=== PATIENT | male | born 1990 | race African-American/Black ===

== ENCOUNTER 2016-07-23 16:10 | Emergency (ER) | payer OTHER ==
[2016-07-23 16:19] VITALS: BP 127/74; PULSE 95; TEMP 98.6; BMI 19.1
--- NOTE | 2016-07-23 17:12 | PDOC ---
History of Present Illness - General Chief Complaint: Cold Symptoms Stated Complaint: CHEST TIGHTNES/COUGH/FEVER Time Seen by Provider: 07/23/16 16:56 History Source: Patient Exam Limitations: No Limitations - History of Present Illness Initial Comments: 07/23/16 17:14 Patient is here with complaints of body aches, fevers and chills, moist cough that is nonproductive, ear and throat pain. Daughter is currently being treated for influenza Timing/Duration: reports: just prior to arrival Severity: reports: moderate Associated Symptoms: reports: chest pain/soreness, cough, fever/chills, headache , nasal congestion, nasal drainage, sore throat Past History - Travel Traveled outside of the country in the last 30 days: No Close contact w/someone who was outside of country & ill: No - Past Medical History Allergies/Adverse Reactions: Allergies Allergy/AdvReac Type Severity Reaction Status Date / Time No Known Allergies Allergy Verified 07/23/16 16:15 Home Medications: Ambulatory Orders Oseltamivir Phosphate [Tamiflu -] 75 mg PO BID #10 capsule 07/23/16 Other medical history: none - Surgical History Abdominal Surgery: Yes (?pyloric stenosis) - Psycho/Social/Smoking Cessation Hx Anxiety: No Suicidal Ideation: No Smoking History: Current every day smoker Have you smoked in the past 12 months: Yes Number of Cigarettes Smoked Daily: 3 Information on smoking cessation initiated: Yes 'Breaking Loose' booklet given: 07/23/16 Hx Alcohol Use: No Drug/Substance Use Hx: No Review of Systems - Review of Systems Able to Perform ROS?: Yes Is the patient limited Vietnamese proficient: Yes Constitutional: Yes: Symptoms Reported, See HPI, Fever, Malaise HEENTM: Yes: Symptoms Reported, See HPI Respiratory: Yes: Symptoms reported, See HPI, Cough, Wheezing Musculoskeletal: Yes: Symptoms Reported Integumentary: Yes: Symptoms Reported All Other Systems: Reviewed and Negative *Physical Exam - Vital Signs Last Vital Signs Temp Pulse Resp BP Pulse Ox 98.6 F 95 H 18 127/74 100 07/23/16 16:16 07/23/16 16:16 07/23/16 16:16 07/23/16 16:16 07/23/16 16:16 - Physical Exam General Appearance: Yes: Nourished, Appropriately Dressed, Apparent Distress, Moderate Distress HEENT: positive: MATHEUS, Normal ENT Inspection, TMs Normal, Pharynx Normal, Pharyngeal Erythema, Rhinorrhea (clear ). negative: Tonsillar Exudate, Tonsillar Erythema Neck: positive: Supple, Lymphadenopathy (R), Lymphadenopathy (L). 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 Daughter is ill with same and tested positive for influenza A. Will treat with Tamiflu *DC/Admit/Observation/Transfer Diagnosis at time of Disposition: Influenza - Discharge Dispostion Disposition: HOME Condition at time of disposition: Stable Admit: No - Patient Instructions Printed Discharge Instructions: DI for Influenza -- Adult Additional Instructions: Rest, drink lots of fluids: Teas, water, soups, Pedialyte Saltwater gargles Steamy showers/seem to face break up mucus Old-fashioned treatments help! Avoid contact with others until fevers and cough resolved as this is very contagious Lots of handwashing and good hygiene Continue [id number] medications for symptomatic relief Tylenol or Motrin for fever and pain Take all of Tamiflu as directed: 1 tab every 12 hours for 5 days Followup with private physician in one to 2 days as needed or if worsening Return to emergency department for worsened symptoms, fevers, dehydration Influenza takes between 5 and 7 days for resolution To not participate in any activity, work, or school until fevers and cough are gone for at least one day - Post Discharge Activity Work/School Note: Back to Work
== END 2016-07-23 17:16 | disposition home or self-care (01) ==
LOC: JERFT 16:10
DX: J11.1 Influenza due to unidentified influenza virus with other respiratory manifestations (principal); F17.210 Nicotine dependence, cigarettes, uncomplicated
CPT/HCPCS: 99281-25

== ENCOUNTER 2020-12-24 11:58 | Emergency (ER) | payer OTHER ==
[2020-12-24 12:08] VITALS: BP 101/67; PULSE 91; TEMP 98.1; BMI 18.4
== END 2020-12-24 12:30 | disposition home or self-care (01) ==
LOC: JERFT 11:58
DX: T83.018A Breakdown (mechanical) of other urinary catheter, initial encounter (principal); R31.0 Gross hematuria
CPT/HCPCS: 99281-25

== ENCOUNTER 2022-09-18 17:26 | Emergency (ER) | payer OTHER ==
[2022-09-18 17:48] VITALS: BP 108/58; PULSE 62; RESP 16; TEMP 97.8; BMI 19.8
[2022-09-18 18:33] LABS: PH,URINE 6.5 (5.0-8.0); URINE APPEARANCE CLEAR; URINE BILIRUBIN NEGATIVE (NEGATIVE); URINE COLOR YELLOW; URINE GLUCOSE (UA) NEGATIVE (NEGATIVE); URINE KETONE NEGATIVE (NEGATIVE); URINE LEUK ESTERASE NEGATIVE (NEGATIVE); URINE NITRITE NEGATIVE (NEGATIVE); URINE PROTEIN TRACE (NEGATIVE); URINE UROBILINOGEN 0.2 mg/dL (0.2-1.0)
== END 2022-09-18 22:33 | disposition home or self-care (01) ==
LOC: JERFT 17:26
DX: I86.1 Scrotal varices (principal); N44.2 Benign cyst of testis
CPT/HCPCS: 36415; 76870-TC; 81003; 87086; 87491; 87591; 99284-25